=== PATIENT | male | born 1985 | race Caucasian/White ===

== ENCOUNTER 2019-07-23 17:45 | Emergency (ER) | payer MEDICARE ==
[~2019-07-23] VITALS: Ht 185.4 cm; Wt 61.6 kg
[~2019-07-23 17:45] MED LIST: AMPH12.52 PO; BACDS PO; CLIN150C8 PO; HYDR-3965 PO; HYDR-4383 PO; LISI40TA4 PO; WEL75T PO; hctz
[2019-07-23 17:49] VITALS: BP 144/87
--- NOTE | 2019-07-23 18:43 | NUR ---
pt c/o lac to left 2nd digit at 0200, cut by hack saw, no bleeding at this time, waiting to be evaluated by provider
--- NOTE | 2019-07-23 18:49 | NUR ---
DRESSING REMOVED, NO BLEEDING, PT IS UNABLE TO BEND FINGER, XRAY ORDERED
[2019-07-23] MEDS ORDERED: TETanus/Pertussis (Acell)/Diphther VAC/PF (Tdap-Adult) 0.5ml syringe IM ONE (19:30)
--- NOTE | 2019-07-23 19:49 | NUR ---
pt said he had tetanus shot 2 years ago,
--- NOTE | 2019-07-23 20:00 | NUR ---
PT IS ABLE TO BEND LEFT 2ND DIGIT NOW AND STRAIGHTEN IT
== END 2019-07-23 20:07 | disposition home or self-care (01) ==
LOC: ER 17:46
DX: S61.211A Laceration without foreign body of left index finger without damage to nail, initial encounter (principal); F12.90 Cannabis use, unspecified, uncomplicated; W27.0XXA Contact with workbench tool, initial encounter; Y93.89 Activity, other specified; Y92.89 Other specified places as the place of occurrence of the external cause; Y99.9 Unspecified external cause status
CPT/HCPCS: 12001; 73140; 99283

== ENCOUNTER 2020-05-05 00:42 | Emergency (ER) | payer MEDICARE, MEDICAID ==
[~2020-05-05] VITALS: Ht 185.4 cm; Wt 68.2 kg
[2020-05-05 00:55] VITALS: BP 162/83
[2020-05-05] MEDS ORDERED: SULF1TAB49 PO (01:08)
[2020-05-05] MEDS ORDERED: ibuprofen tablet 400 MG TABLET PO ONE (01:10)
[2020-05-05] MEDS ORDERED: sulfamethoxazole/trimethoprim DS (800/160mg) tablet PO ONE (01:10)
[2020-05-05] MEDS ORDERED: acetaminophen 325mg tablet PO ONE (01:10)
[2020-05-05] MEDS ORDERED: ondansetron 4mg rapidly disintigrating tab PO ONE (01:10)
== END 2020-05-05 01:20 | disposition home or self-care (01) ==
LOC: ER 00:43
DX: L03.115 Cellulitis of right lower limb (principal); F12.90 Cannabis use, unspecified, uncomplicated; Z59.0 Homelessness; Z88.0 Allergy status to penicillin; Z79.899 Other long term (current) drug therapy
CPT/HCPCS: 99284

== ENCOUNTER 2020-06-19 03:13 | Emergency (ER) | payer MEDICARE, MEDICAID ==
[~2020-06-19] VITALS: Ht 185.4 cm; Wt 140.0 kg
[2020-06-19] MEDS ORDERED: ketorolac trometh. 30mg/ml inj. IM ONE (05:40)
[2020-06-19 07:47] VITALS: BP 130/81
== END 2020-06-19 09:01 | disposition home or self-care (01) ==
LOC: ER 03:13
DX: R51 Headache (principal); F17.200 Nicotine dependence, unspecified, uncomplicated; F12.90 Cannabis use, unspecified, uncomplicated; R11.0 Nausea; R20.0 Anesthesia of skin; R07.89 Other chest pain; R06.02 Shortness of breath; Z59.0 Homelessness; Z88.0 Allergy status to penicillin; Z79.2 Long term (current) use of antibiotics; Z79.899 Other long term (current) drug therapy
CPT/HCPCS: 70450; 96372; 99284; J1885

== ENCOUNTER 2020-08-10 22:02 | Emergency (ER) | payer MEDICARE, MEDICAID ==
[2020-08-10 22:11] VITALS: BP 145/83
[2020-08-10] MEDS ORDERED: ketorolac tromethamine 15mg/ml inj. IM ONE (22:55)
[2020-08-12] MEDS ORDERED: CLIN150C8 PO (14:55)
== END 2020-08-11 00:06 | disposition home or self-care (01) ==
LOC: ER 22:03
DX: M79.671 Pain in right foot (principal); F12.10 Cannabis abuse, uncomplicated; Z59.0 Homelessness; Z88.0 Allergy status to penicillin; Z79.899 Other long term (current) drug therapy; Z79.2 Long term (current) use of antibiotics
CPT/HCPCS: 73630; 96372; 99283; J1885

== ENCOUNTER 2020-08-12 12:14 | Emergency (ER) | payer MEDICARE, MEDICAID ==
[~2020-08-12] VITALS: Ht 188 cm; Wt 60.0 kg
[2020-08-12 12:28] VITALS: BP 121/77
[2020-08-12] MEDS ORDERED: CLIN150C8 PO (14:55)
[2020-08-12] MEDS ORDERED: diphenhydrAMINE 25mg capsule PO ONE (14:55)
== END 2020-08-12 15:10 | disposition home or self-care (01) ==
LOC: ER 12:14
DX: R22.32 Localized swelling, mass and lump, left upper limb (principal); F12.90 Cannabis use, unspecified, uncomplicated; Z88.0 Allergy status to penicillin; Z88.1 Allergy status to other antibiotic agents; Z88.8 Allergy status to other drugs, medicaments and biological substances; Z79.899 Other long term (current) drug therapy; Z59.0 Homelessness
CPT/HCPCS: 99283

== ENCOUNTER 2021-02-28 08:39 | Emergency (ER) | payer MEDICARE, MEDICAID ==
[~2021-02-28] VITALS: Ht 188 cm; Wt 62.8 kg
[~2021-02-28 08:39] MED LIST changes: +LISI40TA13 PO; -LISI40TA4 PO
[2021-02-28] MEDS ORDERED: bacitracin 15gm ointment TP ONE (09:20)
[2021-02-28] MEDS ORDERED: LIDOcaine 1% W/epiNEPHrine 1:200,000 10ml vial IJ ONE (09:20)
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
--- NOTE | 2021-02-28 10:17 | NUR ---
NO PAIN AT THIS TIME
[2021-02-28] MEDS ORDERED: acetaminophen 325mg tablet PO ONE (10:30)
[2021-02-28 11:35] VITALS: BP 136/72
== END 2021-02-28 11:37 | disposition home or self-care (01) ==
LOC: ER 08:39
DX: S01.81XA Laceration without foreign body of other part of head, initial encounter (principal); F12.90 Cannabis use, unspecified, uncomplicated; Z59.0 Homelessness; Z88.0 Allergy status to penicillin; Z79.2 Long term (current) use of antibiotics; Z79.899 Other long term (current) drug therapy; V87.7XXA Person injured in collision between other specified motor vehicles (traffic), initial encounter; Y93.89 Activity, other specified; Y92.89 Other specified places as the place of occurrence of the external cause; Y99.8 Other external cause status
CPT/HCPCS: 12011; 99282

== ENCOUNTER 2021-04-19 21:47 | Emergency (ER) | payer MEDICARE, MEDICAID ==
[~2021-04-19] VITALS: Ht 185.4 cm; Wt 63.0 kg
[2021-04-19 22:25] LABS: COLOR,URINE YELLOW (Yellow); GLUCOSE, URINE 500 mg/dl (Neg); KETONES,URINE NEGATIVE (Neg); LEUKOCYTE ESTERASE ,URINE NEGATIVE (Neg); NITRITES, URINE NEGATIVE (Neg); OCCULT BLOOD,URINE NEGATIVE (Neg); PH,URINE 5.5 (4.8-8.0); PROTEIN,URINE NEGATIVE (Neg); UROBILINOGEN,URINE 0.2 E.U/dL (0.2-1.0)
[2021-04-19 22:26] LABS: UA COLLECTION TYPE CLN CATCH MIDSTREAM
[2021-04-19 22:31] LABS: CLARITY,URINE SLIGHTLY CLOUDY (Clear)
[2021-04-19 22:32] LABS: BACTERIA,URINE NONE SEEN /HPF (Neg); CAL OXALATE CRYSTALS FEW /HPF (NEGATIVE); MUCUS STRANDS MANY /LPF (Neg); RBC,URINE NONE SEEN /HPF (0-2); SQUAMOUS EPITHELIAL CELL,UR FEW /LPF (FEW); WBC,URINE 0-4 /HPF (0-4)
[2021-04-19 22:48] LABS: ALANINE AMINOTRANSFERASE 29 U/L (12-78); ALBUMIN 3.2 G/DL (3.4-5.0); ALKALINE PHOSPHATASE 77 IU/L (46-116); ANION GAP 6 (8-16); ASPARTATE AMINO TRANSFERASE 26 U/L (10-37); BASOPHILS # (AUTO) 0.1 X10'3 (0-0.2); BASOPHILS % (AUTO) 0.7 % (0-1); BILIRUBIN,TOTAL 0.3 MG/DL (0.1-1.0); BLOOD UREA NITROGEN 12 MG/DL (7-18); BUN/CREATININE RATIO 11.7 (5.4-32.0); CHLORIDE 105 MMOL/L (99-107); CREATININE 1.03 MG/DL (0.60-1.10); EOSINOPHILS # (AUTO) 0.2 X10'3 (0-0.9); EOSINOPHILS % (AUTO) 2.9 % (0-6); GLUCOSE 116 MG/DL (70-104); LIPASE 115 U/L (73-393); LYMPHOCYTES # (AUTO) 1.5 X10'3 (1.1-4.8); LYMPHOCYTES % (AUTO) 19.7 % (21-51); MEAN CORPUSCULAR HEMOGLOBIN 26.9 PG (27.0-31.0); MEAN CORPUSCULAR HGB CONC 33.5 g/dL (33.0-36.5); MEAN CORPUSCULAR VOLUME 80.1 FL (78-98); MEAN PLATELET VOLUME 8.2 FL (7.4-10.4); MONOCYTES # (AUTO) 0.8 X10'3 (0-0.9); MONOCYTES % (AUTO) 9.9 % (2-12); NEUTROPHILS # (AUTO) 5.1 X10'3 (1.8-7.7); NEUTROPHILS % (AUTO) 66.8 % (42-75); PLATELET COUNT 325 X10'3 (140-440); POTASSIUM 3.4 MMOL/L (3.5-5.1); RED BLOOD COUNT 3.74 X10'6 (4.70-6.10); RED CELL DISTRIBUTION WIDTH 17.2 % (11.5-14.5); SODIUM 140 MMOL/L (135-145); TOTAL CARBON DIOXIDE 29.3 MMOL/L (24-32); TOTAL PROTEIN 6.4 G/DL (6.4-8.2); WHITE BLOOD COUNT 7.6 X10'3 (4.5-11.0); eGFR 82 ML/MIN
[2021-04-19] MEDS ORDERED: SUCR1TAB PO (23:09)
[2021-04-19] MEDS ORDERED: OMEP40CA21 PO (23:09)
[2021-04-19 23:31] VITALS: BP 114/71
[2021-04-19 23:57] LABS: OCCULT BLOOD STOOL NEGATIVE (Neg)
== END 2021-04-19 23:28 | disposition home or self-care (01) ==
LOC: ER 21:47
DX: R10.13 Epigastric pain (principal); D64.9 Anemia, unspecified; F12.90 Cannabis use, unspecified, uncomplicated; Z59.0 Homelessness; Z88.0 Allergy status to penicillin; Z79.899 Other long term (current) drug therapy; Z79.2 Long term (current) use of antibiotics
CPT/HCPCS: 36415; 80053; 81001; 82272; 83690; 85025; 99283

== ENCOUNTER 2021-11-01 02:37 | Emergency (ER) | payer MEDICAID, MEDICARE ==
[~2021-11-01] VITALS: Ht 185.4 cm; Wt 59.3 kg
[~2021-11-01 02:37] MED LIST changes: +SUCR1TAB PO
[2021-11-01 02:49] VITALS: BP 148/80
== END 2021-11-01 05:53 | disposition left against medical advice (07) ==
LOC: ER 02:38
DX: R03.0 Elevated blood-pressure reading, without diagnosis of hypertension (principal); Z53.21 Procedure and treatment not carried out due to patient leaving prior to being seen by health care provider

== ENCOUNTER 2021-11-02 18:47 | Inpatient (IN) | payer MEDICARE ==
[~2021-11-02] VITALS: Ht 185.4 cm; Wt 67.6 kg
[2021-11-02 19:56] LABS: CLARITY,URINE CLOUDY (Clear); COLOR,URINE YELLOW (Yellow); GLUCOSE, URINE NEGATIVE (Neg); KETONES,URINE NEGATIVE (Neg); LEUKOCYTE ESTERASE ,URINE NEGATIVE (Neg); NITRITES, URINE NEGATIVE (Neg); OCCULT BLOOD,URINE NEGATIVE (Neg); PROTEIN,URINE NEGATIVE (Neg); UROBILINOGEN,URINE 0.2 E.U/dL (0.2-1.0)
[2021-11-02 20:10] LABS: UA COLLECTION TYPE CLN CATCH MIDSTREAM
[2021-11-02 20:12] LABS: BACTERIA,URINE NONE SEEN /HPF (Neg); MUCUS STRANDS NONE SEEN /LPF (Neg); RBC,URINE NONE SEEN /HPF (0-2); SQUAMOUS EPITHELIAL CELL,UR NONE SEEN /LPF (FEW); WBC,URINE 0-4 /HPF (0-4)
[2021-11-02 20:13] LABS: AMORPHOUS PHOSPHATES 3+
[2021-11-02] MEDS ORDERED: acetaminophen 325mg tablet PO ONE (20:30)
[2021-11-02] MEDS ORDERED: pantoprazole 40mg Tablet.DR PO ONE (20:30)
[2021-11-02] MEDS ORDERED: mag hydrox/Alum hydrox/simeth 30ml oral suspension PO ONE (20:30)
[2021-11-02 20:51] LABS: BASOPHILS # (AUTO) 0.1 X10'3 (0-0.2); BASOPHILS % (AUTO) 0.6 % (0-1); EOSINOPHILS # (AUTO) 0.1 X10'3 (0-0.9); EOSINOPHILS % (AUTO) 0.7 % (0-6); HEMOGLOBIN 7.9 g/dl (14.0-17.9); LYMPHOCYTES # (AUTO) 1.6 X10'3 (1.1-4.8); LYMPHOCYTES % (AUTO) 15.6 % (21-51); MEAN CORPUSCULAR HEMOGLOBIN 23.8 PG (27.0-31.0); MEAN CORPUSCULAR HGB CONC 31.8 g/dL (33.0-36.5); MEAN CORPUSCULAR VOLUME 75.1 FL (78-98); MEAN PLATELET VOLUME 7.8 FL (7.4-10.4); MONOCYTES # (AUTO) 0.7 X10'3 (0-0.9); MONOCYTES % (AUTO) 6.4 % (2-12); NEUTROPHILS # (AUTO) 7.8 X10'3 (1.8-7.7); NEUTROPHILS % (AUTO) 76.7 % (42-75); PLATELET COUNT 482 X10'3 (140-440); RED BLOOD COUNT 3.33 X10'6 (4.70-6.10); WHITE BLOOD COUNT 10.2 X10'3 (4.5-11.0)
[2021-11-02] MEDS ORDERED: temazepam 15mg capsule PO PRN (21:00)
[2021-11-02 21:06] LABS: ALANINE AMINOTRANSFERASE 31 U/L (12-78); ALBUMIN 3.6 G/DL (3.4-5.0); ALBUMIN/GLOBULIN RATIO 0.9 (1.1-1.5); ALKALINE PHOSPHATASE 96 IU/L (46-116); ANION GAP 5 (8-16); ASPARTATE AMINO TRANSFERASE 18 U/L (10-37); BILIRUBIN,TOTAL 0.2 MG/DL (0.1-1.0); BLOOD UREA NITROGEN 12 MG/DL (7-18); BUN/CREATININE RATIO 13.8 (5.4-32.0); CALCIUM 8.3 MG/DL (8.5-10.1); CHLORIDE 102 MMOL/L (99-107); CREATININE 0.87 MG/DL (0.60-1.10); GLUCOSE 120 MG/DL (70-104); LIPASE 113 U/L (73-393); POTASSIUM 4.3 MMOL/L (3.5-5.1); SODIUM 136 MMOL/L (135-145); TOTAL CARBON DIOXIDE 29.4 MMOL/L (24-32); TOTAL PROTEIN 7.5 G/DL (6.4-8.2); eGFR > 90 ML/MIN
[2021-11-02] MEDS ORDERED: iohexol 300mg/ml 100ml inj. ONE (21:19)
[2021-11-02] MEDS ORDERED: morphine 4 MG/ML inj SYRINge IV ONE (22:10)
[2021-11-02] MEDS ORDERED: FAMOTIDINE IV SCH (22:35)
[2021-11-02] MEDS ORDERED: NORMAL SALINE IV SCH (22:35)
[2021-11-02] MEDS ORDERED: ondansetron 4mg rapidly disintigrating tab PO PRN (23:10)
[2021-11-02] MEDS ORDERED: magnesium hydroxide 30ml (MOM) UD suspension PO PRN (23:10)
[2021-11-02] MEDS ORDERED: diphenhydrAMINE 50 mg/ml inj IV PRN (23:10)
[2021-11-02] MEDS ORDERED: mag hydrox/Alum hydrox/simeth 30ml oral suspension PO PRN (23:10)
[2021-11-02] MEDS ORDERED: bisacodyl 10mg suppository rectal RC PRN (23:10)
[2021-11-02] MEDS ORDERED: acetaminophen 650mg rectal suppository RC PRN (23:10)
[2021-11-02] MEDS ORDERED: acetaminophen 325mg tablet PO PRN ×2 (23:10)
[2021-11-02] MEDS ORDERED: HYDROcodone/acetaminophen 5mg/325mg tablet PO PRN (23:10)
[2021-11-02] MEDS ORDERED: diphenhydrAMINE 25mg capsule PO PRN (23:10)
[2021-11-02] MEDS ORDERED: HYDROmorphone inj. 0.5 MG/0.5 ML DISP.SYRIN IV PRN (23:10)
[2021-11-02] MEDS ORDERED: morphine 2 MG/ML inj. syringe IV PRN (23:10)
[2021-11-02] MEDS ORDERED: HYDROcodone/acetaminophen 10/325mg tab PO PRN (23:10)
[2021-11-02] MEDS ORDERED: ondansetron/PF 4mg/2ml inj IV PRN (23:10)
[2021-11-02 23:33] LABS: APTT 23 SECONDS (22-32)
[2021-11-02 23:40] LABS: CREATINE KINASE 297 U/L (39-308); MAGNESIUM 2.3 MG/DL (1.5-2.4); PHOSPHORUS 2.9 MG/DL (2.3-4.5)
--- NOTE | 2021-11-02 23:55 | NUR ---
Handed morphine 2mg and zofran to Curly DA SILVA for administration.
[2021-11-02] MEDS: morphine 2 MG/ML inj. syringe IV PRN (23:57)
[2021-11-03] VITALS (12 sets, daily range): BP systolic 122–155; BP diastolic 65–93
[2021-11-03] MEDS: normal saline 1000ml 1,000 ML IV SCH ×3 (00:21→12:46)
[2021-11-03] MEDS: pantoprazole 40MG/NS 100ML BAG 100 ML IV SCH ×6 (00:21→21:55)
[2021-11-03 00:43] LABS: URINE AMPHETAMINE SCREEN POSITIVE (Neg); URINE BARBITUATE SCREEN NEGATIVE (Neg); URINE BENZODIAZEPINES SCREEN NEGATIVE (Neg); URINE CANNABINOID SCREEN POSITIVE (Neg); URINE COCAINE SCREEN NEGATIVE (Neg); URINE METHADONE SCREEN NEGATIVE (Neg); URINE OPIATE SCREEN NEGATIVE (Neg); URINE PHENCYCLIDINE SCREEN NEGATIVE (Neg)
--- NOTE | 2021-11-03 03:28 | NUR ---
Patient's NG tube came out when patient ambulated to bedside commode. NG replaced in opposite nare. Enema administered prior to this with minimal/moderate results.
[2021-11-03] MEDS: morphine 2 MG/ML inj. syringe IV PRN (05:14)
[2021-11-03] MEDS ORDERED: NO HOME MEDS (05:26)
--- NOTE | 2021-11-03 06:00 | NUR ---
Patient in room [facility]. I have received report from Gonzalo DA SILVA and had the opportunity to ask questions and assume patient care.
--- NOTE | 2021-11-03 06:39 | NUR ---
[id number] pt received from ed via [employer] pt is alert and oriented x 4 nad noted. pt has ngt in place to r nare. and protonix gtt infusing . pt is npo .call light within reach
[2021-11-03 06:54] LABS: BASOPHILS % (AUTO) 0.4 % (0-1); EOSINOPHILS % (AUTO) 0.2 % (0-6); LYMPHOCYTES # (AUTO) 1.5 X10'3 (1.1-4.8); LYMPHOCYTES % (AUTO) 16.4 % (21-51); MEAN CORPUSCULAR HEMOGLOBIN 24.6 PG (27.0-31.0); MEAN CORPUSCULAR HGB CONC 32.9 g/dL (33.0-36.5); MEAN CORPUSCULAR VOLUME 74.9 FL (78-98); MONOCYTES # (AUTO) 0.7 X10'3 (0-0.9); MONOCYTES % (AUTO) 6.9 % (2-12); NEUTROPHILS # (AUTO) 7.2 X10'3 (1.8-7.7); NEUTROPHILS % (AUTO) 76.1 % (42-75); PLATELET COUNT 367 X10'3 (140-440); RED BLOOD COUNT 2.79 X10'6 (4.70-6.10); RED CELL DISTRIBUTION WIDTH 18.3 % (11.5-14.5); WHITE BLOOD COUNT 9.4 X10'3 (4.5-11.0)
[2021-11-03 06:57] LABS: ALANINE AMINOTRANSFERASE 25 U/L (12-78); ALKALINE PHOSPHATASE 82 IU/L (46-116); ANION GAP 5 (8-16); ASPARTATE AMINO TRANSFERASE 16 U/L (10-37); BILIRUBIN,TOTAL 0.2 MG/DL (0.1-1.0); BLOOD UREA NITROGEN 10 MG/DL (7-18); BUN/CREATININE RATIO 11.8 (5.4-32.0); CALCIUM 7.7 MG/DL (8.5-10.1); CHLORIDE 103 MMOL/L (99-107); CREATININE 0.85 MG/DL (0.60-1.10); GLUCOSE 105 MG/DL (70-104); POTASSIUM 4.5 MMOL/L (3.5-5.1); SODIUM 136 MMOL/L (135-145); TOTAL CARBON DIOXIDE 28.1 MMOL/L (24-32); TOTAL PROTEIN 6.1 G/DL (6.4-8.2); eGFR > 90 ML/MIN
[2021-11-03 06:59] LABS: HEMATOCRIT 20.9 % (42.0-52.0); HEMOGLOBIN 6.9 g/dl (14.0-17.9)
[2021-11-03] MEDS: docusate sod 100mg capsule PO SCH ×2 (08:00→21:03)
[2021-11-03] MEDS: nicotine 21mg patch - 24 hr TD SCH (08:06)
--- NOTE | 2021-11-03 16:08 | NUR ---
[phone] MESSAGE: Re [address] Matias Anandn. Follow up on previous page re IV fluids. Please call to let me know if you would like fluid infusion to continue once surgical fluids are completed? Pt is not taking in PO yet. thank you, Elmer -Surgical
[2021-11-03] MEDS ORDERED: LIDOcaine Viscous 15ml cup ONE (16:25)
[2021-11-03] MEDS ORDERED: fentaNYL/PF 50MCG/1 ML 2ML syringe ONE (16:25)
[2021-11-03] MEDS ORDERED: MIDAZolam 1 MG/ML 5ML VIAL ONE (16:25)
--- NOTE | 2021-11-03 18:10 | NUR ---
Problems reprioritized. Patient report given, questions answered & plan of care reviewed with Gonzalo.
[2021-11-04] VITALS: BP 145/80
[2021-11-04] MEDS: pantoprazole 40MG/NS 100ML BAG 100 ML IV SCH ×4 (01:00→16:00)
[2021-11-04] MEDS: normal saline 1000ml 1,000 ML IV SCH ×2 (01:28→11:38)
--- NOTE | 2021-11-04 06:51 | NUR ---
Patient in room [facility]. I have received report from Patricia and had the opportunity to ask questions and assume patient care.
[2021-11-04 06:57] LABS: ALANINE AMINOTRANSFERASE 20 U/L (12-78); ALBUMIN 2.9 G/DL (3.4-5.0); ALKALINE PHOSPHATASE 86 IU/L (46-116); ANION GAP 4 (8-16); ASPARTATE AMINO TRANSFERASE 14 U/L (10-37); BILIRUBIN,TOTAL 0.3 MG/DL (0.1-1.0); BLOOD UREA NITROGEN 11 MG/DL (7-18); BUN/CREATININE RATIO 13.9 (5.4-32.0); CALCIUM 8.3 MG/DL (8.5-10.1); CHLORIDE 105 MMOL/L (99-107); CREATININE 0.79 MG/DL (0.60-1.10); GLUCOSE 86 MG/DL (70-104); POTASSIUM 4.9 MMOL/L (3.5-5.1); SODIUM 137 MMOL/L (135-145); TOTAL CARBON DIOXIDE 27.9 MMOL/L (24-32); TOTAL PROTEIN 5.8 G/DL (6.4-8.2); eGFR > 90 ML/MIN
[2021-11-04 07:02] LABS: BASOPHILS % (AUTO) 0.5 % (0-1); EOSINOPHILS # (AUTO) 0.1 X10'3 (0-0.9); EOSINOPHILS % (AUTO) 0.9 % (0-6); HEMATOCRIT 22.3 % (42.0-52.0); HEMOGLOBIN 7.1 g/dl (14.0-17.9); LYMPHOCYTES # (AUTO) 1.5 X10'3 (1.1-4.8); LYMPHOCYTES % (AUTO) 24.6 % (21-51); MEAN CORPUSCULAR HEMOGLOBIN 24.1 PG (27.0-31.0); MEAN CORPUSCULAR VOLUME 75.3 FL (78-98); MONOCYTES # (AUTO) 0.6 X10'3 (0-0.9); MONOCYTES % (AUTO) 8.8 % (2-12); NEUTROPHILS # (AUTO) 4.1 X10'3 (1.8-7.7); NEUTROPHILS % (AUTO) 65.2 % (42-75); PLATELET COUNT 358 X10'3 (140-440); RED BLOOD COUNT 2.96 X10'6 (4.70-6.10); RED CELL DISTRIBUTION WIDTH 17.9 % (11.5-14.5); WHITE BLOOD COUNT 6.3 X10'3 (4.5-11.0)
[2021-11-04 07:24] VITALS: BP 132/70
[2021-11-04] MEDS: docusate sod 100mg capsule PO SCH (08:34)
[2021-11-04] MEDS: nicotine 21mg patch - 24 hr TD SCH (08:35)
--- NOTE | 2021-11-04 11:55 | NUR ---
Student documentation: I have reviewed and agree with all interventions, assessments performed and documented by Alonso COLLADO.
[2021-11-04 12:49] VITALS: BP 107/70
[2021-11-04] MEDS ORDERED: PANT-47 PO (15:44)
[2021-11-04] MEDS ORDERED: FERR325T28 PO (15:47)
--- NOTE | 2021-11-04 15:54 | NUR ---
PAGER ID: [phone] MESSAGE: Carmine Surg [id number] re [address] [place] Patient is already ready to leave ride is hear and patient doesn't want tot stay for the blood draw or possible transfusion..
--- NOTE | 2021-11-04 16:08 | NUR ---
Patient DCed with all belongings. IV removed with no issues.
== END 2021-11-04 16:10 | disposition home or self-care (01) | DRG 391 ==
LOC: ER 18:47 → ED HOLD 23:12 → SUR 3N 11-03 04:05
PROVIDERS: ADMIT Family Medicine; ATTEND Internal Medicine
PROC: BW211ZZ Computerized Tomography (CT Scan) of Abdomen and Pelvis using Low Osmolar Contrast (ICD-10-PCS; principal; 2021-11-02)
PROC: 0D9670Z Drainage of Stomach with Drainage Device, Via Natural or Artificial Opening (ICD-10-PCS; 2021-11-02)
PROC: 0DB48ZX Excision of Esophagogastric Junction, Via Natural or Artificial Opening Endoscopic, Diagnostic (ICD-10-PCS; 2021-11-03)
PROC: 0DB68ZX Excision of Stomach, Via Natural or Artificial Opening Endoscopic, Diagnostic (ICD-10-PCS; 2021-11-03)
DX: K29.00 Acute gastritis without bleeding (principal); K26.5 Chronic or unspecified duodenal ulcer with perforation; K31.1 Adult hypertrophic pyloric stenosis; K29.80 Duodenitis without bleeding; K21.00 Gastro-esophageal reflux disease with esophagitis, without bleeding; D64.9 Anemia, unspecified; Z20.822 Contact with and (suspected) exposure to COVID-19; F12.10 Cannabis abuse, uncomplicated; F90.9 Attention-deficit hyperactivity disorder, unspecified type; F17.200 Nicotine dependence, unspecified, uncomplicated; G89.4 Chronic pain syndrome; R93.3 Abnormal findings on diagnostic imaging of other parts of digestive tract; I10 Essential (primary) hypertension; K59.00 Constipation, unspecified; M54.50 Low back pain, unspecified; Z59.00 Homelessness unspecified; Z88.0 Allergy status to penicillin; Z71.6 Tobacco abuse counseling; Z71.51 Drug abuse counseling and surveillance of drug abuser
CPT/HCPCS: 36415; 43239; 71045; 74177; 80053; 80305; 81001; 82550; 83690; 83735; 83880; 84100; 84443; 85025; 85610; 85730; 86885; 86900; 86901; 87081; 87635; 88305; 88342; 93005; 99152; 99285; A4620; C9113; C9803; G0378; J2250; J2270; J2405; J3010; J7030; J7040; Q9967

== ENCOUNTER 2022-04-25 03:58 | Emergency (ER) | payer BC, MEDICAID ==
[~2022-04-25 03:58] MED LIST changes: -AMPH12.52 PO; -BACDS PO; -CLIN150C8 PO; -HYDR-3965 PO; -HYDR-4383 PO; -LISI40TA13 PO; +PANT-47 PO; -SUCR1TAB PO; -WEL75T PO; -hctz
== END 2022-04-25 05:52 | disposition left against medical advice (07) ==
LOC: ER 03:59
DX: R10.9 Unspecified abdominal pain (principal); Z53.21 Procedure and treatment not carried out due to patient leaving prior to being seen by health care provider

== ENCOUNTER 2022-05-01 20:48 | Emergency (ER) | payer BC, MEDICAID ==
[~2022-05-01] VITALS: Ht 185.4 cm; Wt 65.9 kg
[2022-05-01 21:00] VITALS: BP 114/65
== END 2022-05-01 23:56 | disposition home or self-care (01) ==
LOC: ER 20:48
DX: Z02.89 Encounter for other administrative examinations (principal); F12.90 Cannabis use, unspecified, uncomplicated; F15.90 Other stimulant use, unspecified, uncomplicated; F11.90 Opioid use, unspecified, uncomplicated; Z59.00 Homelessness unspecified; Z88.0 Allergy status to penicillin; Z79.899 Other long term (current) drug therapy
CPT/HCPCS: 99281

== ENCOUNTER 2022-08-05 03:25 | Emergency (ER) | payer BC, MEDICAID ==
[~2022-08-05] VITALS: Ht 185.4 cm; Wt 72.7 kg
[2022-08-05] MEDS ORDERED: ketorolac trometh. 30mg/ml inj. IV ONE (04:05)
[2022-08-05 04:36] LABS: BASOPHILS # (AUTO) 0.1 X10'3 (0-0.2); BASOPHILS % (AUTO) 0.8 % (0-1); EOSINOPHILS # (AUTO) 0.2 X10'3 (0-0.9); EOSINOPHILS % (AUTO) 1.9 % (0-6); HEMATOCRIT 35.7 % (42.0-52.0); HEMOGLOBIN 11.7 g/dl (14.0-17.9); LYMPHOCYTES # (AUTO) 2.5 X10'3 (1.1-4.8); LYMPHOCYTES % (AUTO) 19.7 % (21-51); MEAN CORPUSCULAR HEMOGLOBIN 24.3 PG (27.0-31.0); MEAN CORPUSCULAR HGB CONC 32.9 g/dL (33.0-36.5); MEAN CORPUSCULAR VOLUME 73.8 FL (78-98); MONOCYTES # (AUTO) 1.1 X10'3 (0-0.9); MONOCYTES % (AUTO) 8.8 % (2-12); NEUTROPHILS # (AUTO) 8.8 X10'3 (1.8-7.7); NEUTROPHILS % (AUTO) 68.8 % (42-75); PLATELET COUNT 379 X10'3 (140-440); RED BLOOD COUNT 4.84 X10'6 (4.70-6.10); RED CELL DISTRIBUTION WIDTH 19.2 % (11.5-14.5); WHITE BLOOD COUNT 12.9 X10'3 (4.5-11.0)
[2022-08-05 04:50] LABS: D-DIMER 0.21 MG/L FEU (0-0.50)
[2022-08-05 04:51] LABS: ANISOCYTOSIS 2+; PLATELET ESTIMATE NORMAL
[2022-08-05 04:52] LABS: ELLIPTOCYTES FEW; LARGE PLATELETS FEW; MICROCYTOSIS 1+
[2022-08-05 04:53] LABS: ALANINE AMINOTRANSFERASE 24 U/L (12-78); ALBUMIN 4.2 G/DL (3.4-5.0); ALKALINE PHOSPHATASE 83 IU/L (46-116); ANION GAP 6 (8-16); ASPARTATE AMINO TRANSFERASE 28 U/L (10-37); BILIRUBIN,TOTAL 0.4 MG/DL (0.1-1.0); BLOOD UREA NITROGEN 14 MG/DL (7-18); BUN/CREATININE RATIO 14.4 (5.4-32.0); CALCIUM 9.3 MG/DL (8.5-10.1); CHLORIDE 103 MMOL/L (99-107); CREATININE 0.97 MG/DL (0.60-1.10); GLUCOSE 100 MG/DL (70-104); SODIUM 139 MMOL/L (135-145); TOTAL CARBON DIOXIDE 29.7 MMOL/L (24-32); TOTAL PROTEIN 8.3 G/DL (6.4-8.2); eGFR 87 ML/MIN
[2022-08-05 05:01] LABS: ETHANOL < 0.010 GM/DL (0.0-0.010); POTASSIUM 4.1 MMOL/L (3.5-5.1)
[2022-08-05 05:34] VITALS: BP 150/85
[2022-08-05 06:08] LABS: URINE AMPHETAMINE SCREEN POSITIVE (Neg); URINE BARBITUATE SCREEN NEGATIVE (Neg); URINE BENZODIAZEPINES SCREEN NEGATIVE (Neg); URINE CANNABINOID SCREEN POSITIVE (Neg); URINE COCAINE SCREEN NEGATIVE (Neg); URINE METHADONE SCREEN NEGATIVE (Neg); URINE OPIATE SCREEN NEGATIVE (Neg); URINE PHENCYCLIDINE SCREEN NEGATIVE (Neg)
== END 2022-08-05 06:18 | disposition home or self-care (01) ==
LOC: ER 03:26
DX: R07.89 Other chest pain (principal); F17.200 Nicotine dependence, unspecified, uncomplicated; F15.20 Other stimulant dependence, uncomplicated; Z88.0 Allergy status to penicillin; Z59.00 Homelessness unspecified
CPT/HCPCS: 36415; 71045; 80053; 80305; 80320; 83880; 84484; 85008; 85025; 85379; 93005; 96374; 99285; J1885

== ENCOUNTER 2024-04-25 17:18 | Emergency (ER) | payer BC, MEDICAID ==
[~2024-04-25] VITALS: Ht 185.4 cm; Wt 72.7 kg
[2024-04-25 17:52] VITALS: BP 157/101; PULSE 104; RESP 16; TEMP 98; O2SAT 97
== END 2024-04-25 17:53 | disposition home or self-care (01) ==
LOC: ER 17:18
DX: Z04.1 Encounter for examination and observation following transport accident (principal); F12.90 Cannabis use, unspecified, uncomplicated; F15.90 Other stimulant use, unspecified, uncomplicated; Z88.0 Allergy status to penicillin; Z59.00 Homelessness unspecified
CPT/HCPCS: 99283